=== PATIENT | female | born 1960 | race Caucasian/White ===

== ENCOUNTER → 2023-12-11 | Outpatient (CLI) | payer MEDICARE, SELFPAY ==
--- NOTE | 2023-12-11 13:02 | CT_ITS ---
EXAM: CT CHEST, LUNG CANCER SCREENING WITHOUT INTRAVENOUS CONTRAST CLINICAL INDICATION: Screening TECHNIQUE: Helically acquired images were obtained of the chest without intravenous contrast using low dose (LDCT) lung cancer screening protocol. This CT exam was performed using one or more of the following dose reduction techniques: automated exposure control, adjustment of the mA and/or kV according to patient size, and/or use of iterative reconstruction technique. COMPARISON: No relevant prior studies available. FINDINGS: LUNGS AND PLEURAL SPACES: There are emphysematous changes within both lungs. There is scarring within the right middle lobe. There is minimal atelectasis in the lingula. No mass. No pleural effusion or thickening. No pneumothorax. HEART: Unremarkable. Heart size is normal. No pericardial effusion. No significant coronary artery calcifications. MEDIASTINUM: Unremarkable. No mediastinal or hilar adenopathy. Esophagus is unremarkable. No hiatal hernia. THYROID: Unremarkable. No thyroid lesions. BONES/JOINTS: Unremarkable. No suspicious lytic or blastic abnormality. VASCULATURE: Unremarkable. Thoracic aorta is non-dilated. LYMPH NODES: Unremarkable. No enlarged lymph nodes. CT/Low Dose CT Lung Screening IMPRESSION: Pulmonary hyperinflation with emphysematous change. There is scarring in the right middle lobe. There is no acute pulmonary abnormality. Lung-RADS score: 1S - Additional clinically significant or potentially clinically significant findings are described. Recommend continued annual screening with a low-dose CT (LDCT) in 12 months. Electronically Signed: Samy Vyas MD at 0:00 EDT ,
--- OUTSIDE RECORDS SUMMARY | 2023-12-11 18:19 | XMS RPT_ITS | CCD ---
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 Name Role Phone SANDY CONRAD DO Primary Care Physician ([phone] MAST SERVOMECHANISM DESIGNER-AMUSEMENT EQUIPMENT OPERATOR, WILFRIDO Primary Care Physician ([phone] DR XAVIER TUCKER DO Attending Unavailabl e MAST SERVOMECHANISM DESIGNER-AMUSEMENT EQUIPMENT OPERATOR, WILFRIDO Primary Care Unavailabl e MAST SERVOMECHANISM DESIGNER-AMUSEMENT EQUIPMENT OPERATOR, WILFRIDO Primary Care Unavailabl e MOON SERVOMECHANISM DESIGNER-AMUSEMENT EQUIPMENT OPERATOR, DIANELYS Attending Arelivapapi labbriana MAST SERVOMECHANISM DESIGNER-AMUSEMENT EQUIPMENT OPERATOR, WILFRIDO Primary Care Unavailabl e MAST SERVOMECHANISM DESIGNER-AMUSEMENT EQUIPMENT OPERATOR, WILFRIDO Attending Unavailabl e HOUSTON SORENSON, SANDY Primary Care Unavailable CHARLES SAUNDERS, URI Attending Unavailable Medications Current Medications Medication Drug Class(es) Dates Sig (Normalized) Sig (Original) Albuterol (1 source) beta2-Adrenergic Agonist Start: 11-15-2022 Ventolin HFA MDI (90 mcg/inh) inhalation aerosol 0 Refill(s) Start Date: 11/15/22 Status: Ordered albuterol MDI (90 mcg/inh) CFC free inhalation aerosol (2 sources) Start: 10-28-2022 End: 01-26-2023 take 2 puff(s) by inhalation every six hours as needed for wheezing albuterol MDI (90 mcg/inh) CFC free inhalation aerosol 2 puff(s), Inhalation, q6h, PRN as needed for wheezing, # 18 gram(s), 2 Refill(s), Pharmacy: [facility] #[id number], 160, cm, 10/28/22 14:32:00 EST, Height, kg, 10/28/22 14:32:00 EST, Dosing Weight Start Date: 10/28/22 Stop Date: 01/26/23 Status: Ordered Problems Problem Classification Problem Date Documented Da te Episodic/Chronic Alcohol-related disorders (2 sources) Alcohol abuse 10-07-2022 Chronic Cardiac dysrhythmias (2 sources) Tachycardia 09-12-2020 Episodic Chronic obstructive pulmonary disease and bronchiectasis (4 sources) Pulmonary emphysema; Translations: [Smokers' cough] 10-05-2021 Chronic Essential hypertension (1 source) Hypertensive disorder 10-28-2022 Chronic Heart valve disorders (2 sources) Heart murmur 03-25-2020 Episodic Nutritional deficiencies (1 source) Undernutrition 11-15-2022 Chronic Other eye disorders (1 source) Bilateral arcus senilis 11-15-2022 Episodic Other gastrointestinal disorders (2 sources) Dysphagia 09-12-2020 Episodic Other lower respiratory disease (2 sources) Hypoxia 09-12-2020 Episodic Other lower respiratory disease (2 sources) Wheezing 09-12-2020 Episodic Other nutritional; endocrine; and metabolic disorders (1 source) Body mass index less than 20 11-15-2022 Episodic Residual codes; unclassified (2 sources) Tobacco user 03-25-2020 Episodic Spondylosis; intervertebral disc disorders; other back problems (4 sources) Narrowing of intervertebral disc space; Translations: [Neck pain] 10-06-2020 Episodic Results Test Name Value Interpretation Reference Range Facil ity Vital Signs Date Time Vital Sign Value Performing Clinician Macy noel 10-20-2022 22:38-0500 Diastolic Blood Pressure Non-Invasive 84 1 URI SOTO MD [facility] 10-20-2022 22:38-0500 Heart rate 80 /min URI SOTO MD [facility] 10-20-2022 22:38-0500 Respiratory rate 18 /min URI SOTO MD [facility] 10-20-2022 22:38-0500 Systolic Blood Pressure Non-Invasive 124 1 URI SOTO MD [facility] 10-20-2022 21:45-0500 Diastolic Blood Pressure Non-Invasive 84 1 URI SOTO MD [facility] 10-20-2022 21:45-0500 Heart rate 74 /min URI SOTO MD [facility] 10-20-2022 21:45-0500 Systolic Blood Pressure Non-Invasive 189 1 URI SOTO MD [facility] 10-20-2022 20:28-0500 Blood Pressure Location URI SOTO MD [facility] 10-20-2022 20:28-0500 Body height 162.6 cm URI SOTO MD [facility] 10-20-2022 20:28-0500 Body temperature 97.7 [degF] URI SOTO MD [facility] 10-20-2022 20:28-0500 Body weight 45.1 kg URI SOTO MD [facility] 10-20-2022 20:28-0500 Diastolic Blood Pressure Non-Invasive 90 1 URI SOTO MD [facility] 10-20-2022 20:28-0500 Heart rate 82 /min URI SOTO MD [facility] 10-20-2022 20:28-0500 Systolic Blood Pressure Non-Invasive 192 1 URI SOTO MD [facility] Encounters Encounter Date Encounter Type Care Provider Facility Start: 09-19-2023 End: 09-20-2023 ambulatory WILFRIDO MAST SERVOMECHANISM DESIGNER-AMUSEMENT EQUIPMENT OPERATOR Facility:[facility] Start: 07-27-2023 End: 07-28-[address] XAVIER TUCKER DO Facility:[facility] Start: 12-20-2022 End: 12-21-2022 ambulatory WILFRIDO MAST SERVOMECHANISM DESIGNER-AMUSEMENT EQUIPMENT OPERATOR Facility:[facility] Start: 12-20-2022 End: 12-20-2022 Patient encounter procedure WILFRIDO [facility] Start: 10-20-2022 End: 10-21-2022 Emergency department patient visit SANDY CONRAD Facility:[facility] Start: 10-20-2022 End: 10-20-2022 Emergency department patient visit URI SOTO MD [facility] Procedures Date Procedure Procedure Detail Performing Clinician Acquired trigger finger (disorder) URI SOTO MD Payers Date Payer Category Payer Private Health Insurance [id number] 2022 Unknown [id number] 1960 Unknown [id number] 1960 Unknown [id number] 1960 Unknown [id number] 1960 Unknown [id number] Social History Date Type Detail Facility Start: 01-15-2020 Tobacco smoking status Heavy t obacco smoker (finding) [facility] Sex Assigned At Female [facility] Functional Status Date Assessment Result Facility 10-20-2022 Functional Status Standard Safet y ID band on, Call device within reach, Bed in low position, Wheels locked, Upper/Half-Length side-rails up, Bedside Cart Locked, Safety level maintained [facility] Mental Status Date Assessment Result Facility 10-20-2022 Mental Status Orientation Oriented x 4 [facility] Discharge instructions 10-21-2022 Note Date & Type Note Facility 10-21-2022 Hospital Discharge instructions Patient Education 10/20/2022 22:25:24 Treating Dysphagia Treating Dysphagia Blend foods to make them easier to eat. A medical evaluation helps your healthcare provider find the cause of your trouble swallowing, or dysphagia. Your evaluation may include a medical history and some special tests. Your provider will make a treatment plan based on the results of your evaluation. You may need to take medicines. In some cases, your provider may suggest a procedure to stretch or widen your esophagus (esophageal dilation). Or your provider may suggest surgery. What you can do To help control dysphagia, follow your treatment plan. Take all medicines as directed. You also can help lessen your dysphagia symptoms by being careful about what and how you eat. Medicines You may need medicines, such as those that: Reduce or neutralize stomach acids Control esophagus muscle spasms Treat an allergic disorder of the esophagus that is causing the problem Are injected into the esophagus to help symptoms Esophageal dilation Dilation is a procedure that your provider can use to widen your esophagus. It is most often done when a narrowing (stricture) of the esophagus is causing the problem. There are many ways your provider can widen your esophagus. He or she can discuss them with you. Eating tips Eat slowly in a relaxed setting. Don t talk while you eat. Take small bites and chew slowly and thoroughly Sit in an upright position during and after meals. Ask your provider about any special diets that may help, such as liquid diets. If you have trouble swallowing solid foods, you can use a hand carver to mash or pur e them. Thicken liquids with milk, juice, broth, gravy, or starch to make swallowing easier. Your healthcare provider may recommend that you have an evaluation or sessions with a speech or occupational therapist. These specialists in dysphagia may give you exercises and instructions to help you eat safely. [id number] [employer]. [address] [place] [address]. All rights reserved. This information is not intended as a substitute for professional medical care. Always follow your healthcare professional's instructions. 10/20/2022 22:25:11 Hypertension, New (Begin Treatment) High Blood Pressure, New, Begin Treatment Your blood pressure was high enough today to start treatment with medicines. Often healthcare providers don t know what causes high blood pressure (hypertension). But it can be controlled with lifestyle changes and medicines. High blood pressure usually has no symptoms. But it can sometimes cause headache, dizziness, blurred vision, a rushing sound in your ears, chest pain, or shortness of breath. But even without symptoms, high blood pressure that s not treated raises your risk for heart attack, heart failure, and stroke. High blood pressure is a serious health risk and shouldn t be ignored. Blood pressure measurements are given as 2 numbers. Systolic blood pressure is the upper number. This is the pressure when the heart contracts. Diastolic blood pressure is the lower number. This is the pressure when the heart relaxes between beats. You will see your blood pressure readings written together. For example, a person with a systolic pressure of 118 and a diastolic pressure of 78 will have 118/78 written in the medical record. Blood pressure is categorized as normal, elevated, or stage 1 or stage 2 high blood pressure: Normal blood pressure is systolic of less than 120 and diastolic of less than 80 (120/80) Elevated blood pressure is systolic of 120 to 129 and diastolic less than 80 Stage 1 high blood pressure is systolic is 130 to 139 or diastolic between 80 to 89 Stage 2 high blood pressure is when systolic is 140 or higher or the diastolic is 90 or higher Home care If you have high blood pressure, you should do what is listed below to lower your blood pressure. If you are taking medicines for high blood pressure, these methods may reduce or end your need for medicines in the future. Begin a weight-loss program if you are overweight. Cut back on how much salt you get in your diet. Here s how to do this: oDon t eat foods that have a lot of salt. These include olives, pickles, smoked meats, and salted potato chips. oDon t add salt to your food at the table. oUse only small amounts of salt when cooking. [facility] food labels to track how much salt is in prepared foods. oWhen eating out, ask that no additional salt be added to your food order. Begin an exercise program. Talk with your healthcare provider about the type of exercise program that would be best for you. It doesn't have to be hard. Even brisk walking for 20 minutes 3 times a week is a good form of exercise. Don t take medicines that have heart stimulants. This includes many rato-xex-sybtvsb cold and sinus decongestant pills and sprays, as well as diet pills. Check the warnings about high blood pressure on the label. Before purchasing any bpsu-hxc-hsakgql medicines or supplements, always ask the pharmacist about the product's potential interaction with your high blood pressure and your high blood pressure medicines. Stimulants such as amphetamine or cocaine could be lethal for someone with high blood pressure. Never take these. Limit how much caffeine you get in your diet. Switch to caffeine-free products. Stop smoking. If you are a long-time smoker, this can be hard. Enroll in a stop-smoking program to make it more likely that you will quit for good. Learn how to handle stress. This is an important part of any program to lower blood pressure. Learn about relaxation methods like meditation, yoga, or biofeedback. If your provider prescribed medicines, take them exactly as directed. Missing doses may cause your blood pressure get out of control. If you miss a dose or doses, check with your healthcare provider or pharmacist about what to do. Consider buying an automatic blood pressure machine. Your provider can make a recommendation. You can get one of these at most pharmacies. The [place] [employer] recommends the following guidelines for home blood pressure monitoring: Don't smoke or drink coffee or other caffeinated drinks for 30 minutes before taking your blood pressure. Go to the bathroom before the test. Relax for 5 minutes before taking the measurement. Sit with your back supported (don't sit on a couch or soft chair); keep your feet on the floor uncrossed. Place your arm on a solid flat surface (like a table) with the upper part of the arm at heart level. Place the middle of the cuff directly above the bend of the elbow. Check the monitor's instruction manual for an illustration. Take multiple readings. When you measure, take 2 to 3 readings one minute apart and record all of the results. Take your blood pressure at the same time every day, or as your healthcare provider recommends. Record the date, time, and blood pressure reading. Take the record with you to your next medical appointment. If your blood pressure monitor has a built-in memory, simply take the monitor with you to your next appointment. Call your provider if you have several high readings. Don't be frightened by a single high blood pressure reading, but if you get several high readings, check in with your healthcare provider. Note: When blood pressure reaches a systolic (top number) of 180 or higher OR diastolic (bottom number) of 110 or higher, seek emergency medical treatment. Follow-up care Because a new blood pressure medicine was started today, it s important that you have your blood pressure rechecked. This is to make sure that the medicine is working and that you have no serious side effects. Keep all your follow up appointments. Write down medicine and blood pressure questions and bring them to your next appointment. If you have pressing concerns about your new medicine or your blood pressure, call your provider. Unless told otherwise, follow up with your healthcare provider or this facility within the next 3 days. When to seek medical advice Call your healthcare provider right away if any of these occur: Blood pressure reaches a systolic (top number) of 180 or higher, OR diastolic (bottom number) of 110 or higher, seek emergency medical treatment. Chest pain or shortness of breath Severe headache Throbbing or rushing sound in the ears Nosebleed Sudden severe pain in your belly (abdomen) Extreme drowsiness, confusion, or fainting Dizziness or dizziness with a spinning sensation (vertigo) Weakness of an arm or leg or one side of the face You have problems speaking or seeing [id number] [employer]. [address] [place] [address]. All rights reserved. This information is not intended as a substitute for professional medical care. Always follow your healthcare professional's instructions. 10/20/2022 22:24:58 COPD Flare COPD Flare You have had a flare-up of your COPD. COPD (chronic obstructive pulmonary disease) is a common lung disease. It causes your airways to get irritated and narrower. This makes it harder for you to breathe. Emphysema and chronic bronchitis are both types of COPD. This is a long-term (chronic) condition. This means you always have it. Sometimes it gets worse. When this happens, it is called a flare-up. Symptoms of COPD People with COPD may have symptoms most of the time. In a flare-up, your symptoms get worse. These symptoms may mean you are having a flare-up: Shortness of breath, shallow or rapid breathing, or wheezing that gets worse Lung infection Cough that gets worse More mucus, thicker mucus or mucus of a different color Tiredness, less energy, or trouble doing your normal activities Fever Chest tightness Your symptoms don t get better even when you use your normal medicines, inhalers, and nebulizer Trouble talking You feel confused Causes of flare-ups Unfortunately, a flare-up can happen even if you did everything right. And even if you followed your healthcare provider s instructions. Some causes of flare-ups are: Smoking or secondhand smoke Colds, the flu, or respiratory infections Air pollution Sudden change in the weather Dust, irritating chemicals, or strong fumes Not taking your medicines as prescribed Home care Here are some things you can do at home to treat a flare-up: Try not to panic. This makes it harder to breathe, and keeps you from doing the right things. Don t smoke or be around others who are smoking. Try to drink more fluids than normal during a flare-up, unless your healthcare provider has told you not to because of heart and kidney problems. More fluids can help loosen the mucus. Use your inhalers and nebulizer, if you have one, as you have been told to. If you were given antibiotics, take them until they are used up or your provider tells you to stop. It s important to finish the antibiotics, even though you feel better. This will make sure the infection has cleared. If you were given prednisone or another steroid, finish it even if you feel better. Preventing a flare-up Flare-ups happen. But the best way to treat one is to prevent it before it starts. Here are some pointers: Don t smoke or be around others who are smoking. Take your medicines as discussed with your healthcare provider. Talk with your provider about getting a flu shot every year. Also find out if you need a pneumonia shot. If there is a weather advisory warning to stay indoors, try to stay inside when possible. Try to eat healthy, exercise, and get plenty of sleep. Try to stay away from things that normally set you off. These include dust, chemical fumes, hairsprays, or strong perfumes. Follow-up care Follow up with your healthcare provider, or as advised. If a culture was done, you will be told if your treatment needs to be changed. You can call as directed for the results. If X-rays were done, you will be told of any new findings that may affect your care. Call 911 Call 911 if any of these occur: You have trouble breathing You feel confused or it s hard to wake you up You faint or lose consciousness You have a rapid heart rate You have new pain in your chest, arm, shoulder, neck, or upper back When to seek medical advice Call your healthcare provider right away if any of these occur: Wheezing or shortness of breath gets worse You need to use your inhalers more often than normal without relief Fever of 100.4 F (38 C) or higher, or as directed by your healthcare provider Coughing up lots of dark-colored or bloody mucus (sputum) Chest pain with each breath You don't start to get better within 24 hours Swelling of your ankles gets worse Dizziness or weakness [phone] [employer]. [address] [place] [address], [place] [address]. All rights reserved. This information is not intended as a substitute for professional medical care. Always follow your healthcare professional's instructions. 10/20/2022 22:24:42 Shortness of Breath (Dyspnea) Shortness of Breath (Dyspnea) Shortness of breath is the feeling that you can't catch your breath or get enough air. It is also known as dyspnea. Dyspnea can be caused by many different conditions. They include: Acute asthma attack Worsening of chronic lung diseases such as chronic bronchitis and emphysema Heart failure. This is when weak heart muscle allows extra fluid to collect in the lungs. Panic attacks or anxiety. Fear can cause rapid breathing (hyperventilation). Pneumonia, or an infection in the lung tissue Exposure to toxic substances, fumes, smoke, or certain medicines Blood clot in the lung (pulmonary embolism). This is often from a piece of blood clot in a deep vein of the leg (deep vein thrombosis) that breaks off and travels to the lungs. Heart attack or heart-related chest pain (angina) Anemia Collapsed lung (pneumothorax) Dehydration Based on your visit today, the exact cause of your shortness of breath is not certain. Your tests don t show any of the serious causes of dyspnea. You may need other tests to find out if you have a serious problem. It s important to watch for any new symptoms or symptoms that get worse. Follow up with your healthcare provider as directed. Home care Follow these tips to take care of yourself at home: When your symptoms are better, go back to your usual activities. If you smoke, you should stop. Join a quit-smoking program or ask your healthcare provider for help. Eat a healthy diet and get plenty of sleep. Get regular exercise. Talk with your healthcare provider before starting to exercise, especially if you have other medical problems. Cut down on the amount of caffeine and stimulants you consume. Follow-up care Follow up with your healthcare provider, or as advised. If tests were done, you will be told if your treatment needs to be changed. You can call as directed for the results. If an X-ray was taken, a specialist will review it. You will be notified of any new findings that may affect your care. Call 911 Shortness of breath may be a sign of a serious medical problem. For example, it may be a problem with your heart or lungs. Call 911 if you have worsening shortness of breath or trouble breathing, especially with any of the symptoms below: Confusion or difficulty waking Fainting or loss of consciousness. Fast or irregular heartbeat Coughing up blood Pain in your chest, arm, shoulder, neck, or upper back Sweating When to seek medical advice Call your healthcare provider right away if any of these occur: Slight shortness of breath or wheezing Redness, pain or swelling in your leg, arm, or other body area Swelling in both legs or ankles Fast weight gain Dizziness or weakness Fever of 100.4 F (38 C) or higher, or as directed by your healthcare provider [phone] [employer] [address] [place] [address]. All rights reserved. This information is not intended as a substitute for professional medical care. Always follow your healthcare professional's instructions. Follow Up Care 10/20/2022 20:20:59 With:SANDY CONRAD Address: [address] [place] [address] [place] [address]- [phone] Business (1) When:2-4 days Comments:Schedule appointment for close follow-up.Do not smoke.Use albuterol inhaler as prescribed for shortness of breath/wheezing as needed.Use lisinopril as prescribed for shortness of breath as needed.Monitor your blood pressures closely, keep a log of the readings to show your doctor.Get a referral to a hole puncher strap (GI specialist) from your doctor for further evaluation of difficulty swallowing.Return to the ED if symptoms worsen. [facility] Emergency department Discharge summary 10-20-2022 Note Date & Type Note Facility 10-20-2022 Emergency department Discharge summary Discharge Instructions Thank you for allowing [facility] to assist you with your healthcare needs. The following is important discharge information regarding your hospital visit. Diagnosis from Today's Visit Difficulty swallowing Shortness of breath What to Do Next Instructions from Your Care Team No qualifying data available. Post Acute Orders No qualifying data available. You Need to Schedule the Following Appointments Follow Up with SANDY CONRAD When Within 2-4 days Why: Schedule appointment for close follow-up. Do not smoke. Use albuterol inhaler as prescribed for shortness of breath/wheezing as needed. Use lisinopril as prescribed for shortness of breath as needed. Monitor your blood pressures closely, keep a log of the readings to show your doctor. Get a referral to a hole puncher strap (GI specialist) from your doctor for further evaluation of difficulty swallowing. Return to the ED if symptoms worsen. Where: [address] [place] [phone] Business (1) Allergies NK[facility] Medications Please ask your primary doctor or pharmacist before taking any other medication not listed, including over the counter drugs, herbal medications, vitamins and or supplements as they may interact with your home medications. What How Much When Why Instructions Last Dose New albuterol (albuterol MDI (90 mcg/ inh) CFC free inhalation aerosol) 2 puff(s) by inhalation Every 6 hours Printed Prescription New lisinopril (lisinopril 10 mg oral tablet) 1 tab(s) by mouth Once a day Duration: 14 Days Printed Prescription Unchanged budesonide-formoterol (Symbicort 160 mcg-4.5 mcg/ inh Inhaler) 2 puff(s) by inhalation Two (2) times a day Emphysema/COPD Tobacco use Unchanged omeprazole (omeprazole 2 mg/ mL oral suspension) 20 Milliliter by mouth Once a day Dysphagia Duration: 30 Days Please take this list to your next doctor s visit. Bring all medications you take, including over the counter medications, herbals and other supplements with you to your doctor s visit. Patients and families are reminded to discard old lists and to update any records with all medication providers or retail pharmacies. Education Materials Treating Dysphagia Blend foods to make them easier to eat. A medical evaluation helps your healthcare provider find the cause of your trouble swallowing, or dysphagia. Your evaluation may include a medical history and some special tests. Your provider will make a treatment plan based on the results of your evaluation. You may need to take medicines. In some cases, your provider may suggest a procedure to stretch or widen your esophagus (esophageal dilation). Or your provider may suggest surgery. What you can do To help control dysphagia, follow your treatment plan. Take all medicines as directed. You also can help lessen your dysphagia symptoms by being careful about what and how you eat. Medicines You may need medicines, such as those that: Reduce or neutralize stomach acids Control esophagus muscle spasms Treat an allergic disorder of the esophagus that is causing the problem Are injected into the esophagus to help symptoms Esophageal dilation Dilation is a procedure that your provider can use to widen your esophagus. It is most often done when a narrowing (stricture) of the esophagus is causing the problem. There are many ways your provider can widen your esophagus. He or she can discuss them with you. Eating tips Eat slowly in a relaxed setting. Don t talk while you eat. Take small bites and chew slowly and thoroughly Sit in an upright position during and after meals. Ask your provider about any special diets that may help, such as liquid diets. If you have trouble swallowing solid foods, you can use a hand carver to mash or pur e them. Thicken liquids with milk, juice, broth, gravy, or starch to make swallowing easier. Your healthcare provider may recommend that you have an evaluation or sessions with a speech or occupational therapist. These specialists in dysphagia may give you exercises and instructions to help you eat safely. [id number] [employer]. [address] [place] [id number]. All rights reserved. This information is not intended as a substitute for professional medical care. Always follow your healthcare professional's instructions. High Blood Pressure, New, Begin Treatment Your blood pressure was high enough today to start treatment with medicines. Often healthcare providers don t know what causes high blood pressure (hypertension). But it can be controlled with lifestyle changes and medicines. High blood pressure usually has no symptoms. But it can sometimes cause headache, dizziness, blurred vision, a rushing sound in your ears, chest pain, or shortness of breath. But even without symptoms, high blood pressure that s not treated raises your risk for heart attack, heart failure, and stroke. High blood pressure is a serious health risk and shouldn t be ignored. Blood pressure measurements are given as 2 numbers. Systolic blood pressure is the upper number. This is the pressure when the heart contracts. Diastolic blood pressure is the lower number. This is the pressure when the heart relaxes between beats. You will see your blood pressure readings written together. For example, a person with a systolic pressure of 118 and a diastolic pressure of 78 will have 118/78 written in the medical record. Blood pressure is categorized as normal, elevated, or stage 1 or stage 2 high blood pressure: Normal blood pressure is systolic of less than 120 and diastolic of less than 80 (120/80) Elevated blood pressure is systolic of 120 to 129 and diastolic less than 80 Stage 1 high blood pressure is systolic is 130 to 139 or diastolic between 80 to 89 Stage 2 high blood pressure is when systolic is 140 or higher or the diastolic is 90 or higher Home care If you have high blood pressure, you should do what is listed below to lower your blood pressure. If you are taking medicines for high blood pressure, these methods may reduce or end your need for medicines in the future. Begin a weight-loss program if you are overweight. Cut back on how much salt you get in your diet. Here s how to do this: oDon t eat foods that have a lot of salt. These include olives, pickles, smoked meats, and salted potato chips. oDon t add salt to your food at the table. oUse only small amounts of salt when cooking. everyArtview food labels to track how much salt is in prepared foods. oWhen eating out, ask that no additional salt be added to your food order. Begin an exercise program. Talk with your healthcare provider about the type of exercise program that would be best for you. It doesn't have to be hard. Even brisk walking for 20 minutes 3 times a week is a good form of exercise. Don t take medicines that have heart stimulants. This includes many vlep-fhs-plfzazo cold and sinus decongestant pills and sprays, as well as diet pills. Check the warnings about high blood pressure on the label. Before purchasing any flvd-vha-exeqhcn medicines or supplements, always ask the pharmacist about the product's potential interaction with your high blood pressure and your high blood pressure medicines. Stimulants such as amphetamine or cocaine could be lethal for someone with high blood pressure. Never take these. Limit how much caffeine you get in your diet. Switch to caffeine-free products. Stop smoking. If you are a long-time smoker, this can be hard. Enroll in a stop-smoking program to make it more likely that you will quit for good. Learn how to handle stress. This is an important part of any program to lower blood pressure. Learn about relaxation methods like meditation, yoga, or biofeedback. If your provider prescribed medicines, take them exactly as directed. Missing doses may cause your blood pressure get out of control. If you miss a dose or doses, check with your healthcare provider or pharmacist about what to do. Consider buying an automatic blood pressure machine. Your provider can make a recommendation. You can get one of these at most pharmacies. The [place] [employer] recommends the following guidelines for home blood pressure monitoring: Don't smoke or drink coffee or other caffeinated drinks for 30 minutes before taking your blood pressure. Go to the bathroom before the test. Relax for 5 minutes before taking the measurement. Sit with your back supported (don't sit on a couch or soft chair); keep your feet on the floor uncrossed. Place your arm on a solid flat surface (like a table) with the upper part of the arm at heart level. Place the middle of the cuff directly above the bend of the elbow. Check the monitor's instruction manual for an illustration. Take multiple readings. When you measure, take 2 to 3 readings one minute apart and record all of the results. Take your blood pressure at the same time every day, or as your healthcare provider recommends. Record the date, time, and blood pressure reading. Take the record with you to your next medical appointment. If your blood pressure monitor has a built-in memory, simply take the monitor with you to your next appointment. Call your provider if you have several high readings. Don't be frightened by a single high blood pressure reading, but if you get several high readings, check in with your healthcare provider. Note: When blood pressure reaches a systolic (top number) of 180 or higher OR diastolic (bottom number) of 110 or higher, seek emergency medical treatment. Follow-up care Because a new blood pressure medicine was started today, it s important that you have your blood pressure rechecked. This is to make sure that the medicine is working and that you have no serious side effects. Keep all your follow up appointments. Write down medicine and blood pressure questions and bring them to your next appointment. If you have pressing concerns about your new medicine or your blood pressure, call your provider. Unless told otherwise, follow up with your healthcare provider or this facility within the next 3 days. When to seek medical advice Call your healthcare provider right away if any of these occur: Blood pressure reaches a systolic (top number) of 180 or higher, OR diastolic (bottom number) of 110 or higher, seek emergency medical treatment. Chest pain or shortness of breath Severe headache Throbbing or rushing sound in the ears Nosebleed Sudden severe pain in your belly (abdomen) Extreme drowsiness, confusion, or fainting Dizziness or dizziness with a spinning sensation (vertigo) Weakness of an arm or leg or one side of the face You have problems speaking or seeing [id number] [employer]. [address] [place] [id number]. All rights reserved. This information is not intended as a substitute for professional medical care. Always follow your healthcare professional's instructions. COPD Flare You have had a flare-up of your COPD. COPD (chronic obstructive pulmonary disease) is a common lung disease. It causes your airways to get irritated and narrower. This makes it harder for you to breathe. Emphysema and chronic bronchitis are both types of COPD. This is a long-term (chronic) condition. This means you always have it. Sometimes it gets worse. When this happens, it is called a flare-up. Symptoms of COPD People with COPD may have symptoms most of the time. In a flare-up, your symptoms get worse. These symptoms may mean you are having a flare-up: Shortness of breath, shallow or rapid breathing, or wheezing that gets worse Lung infection Cough that gets worse More mucus, thicker mucus or mucus of a different color Tiredness, less energy, or trouble doing your normal activities Fever Chest tightness Your symptoms don t get better even when you use your normal medicines, inhalers, and nebulizer Trouble talking You feel confused Causes of flare-ups Unfortunately, a flare-up can happen even if you did everything right. And even if you followed your healthcare provider s instructions. Some causes of flare-ups are: Smoking or secondhand smoke Colds, the flu, or respiratory infections Air pollution Sudden change in the weather Dust, irritating chemicals, or strong fumes Not taking your medicines as prescribed Home care Here are some things you can do at home to treat a flare-up: Try not to panic. This makes it harder to breathe, and keeps you from doing the right things. Don t smoke or be around others who are smoking. Try to drink more fluids than normal during a flare-up, unless your healthcare provider has told you not to because of heart and kidney problems. More fluids can help loosen the mucus. Use your inhalers and nebulizer, if you have one, as you have been told to. If you were given antibiotics, take them until they are used up or your provider tells you to stop. It s important to finish the antibiotics, even though you feel better. This will make sure the infection has cleared. If you were given prednisone or another steroid, finish it even if you feel better. Preventing a flare-up Flare-ups happen. But the best way to treat one is to prevent it before it starts. Here are some pointers: Don t smoke or be around others who are smoking. Take your medicines as discussed with your healthcare provider. Talk with your provider about getting a flu shot every year. Also find out if you need a pneumonia shot. If there is a weather advisory warning to stay indoors, try to stay inside when possible. Try to eat healthy, exercise, and get plenty of sleep. Try to stay away from things that normally set you off. These include dust, chemical fumes, hairsprays, or strong perfumes. Follow-up care Follow up with your healthcare provider, or as advised. If a culture was done, you will be told if your treatment needs to be changed. You can call as directed for the results. If X-rays were done, you will be told of any new findings that may affect your care. Call 911 Call 911 if any of these occur: You have trouble breathing You feel confused or it s hard to wake you up You faint or lose consciousness You have a rapid heart rate You have new pain in your chest, arm, shoulder, neck, or upper back When to seek medical advice Call your healthcare provider right away if any of these occur: Wheezing or shortness of breath gets worse You need to use your inhalers more often than normal without relief Fever of 100.4 F (38 C) or higher, or as directed by your healthcare provider Coughing up lots of dark-colored or bloody mucus (sputum) Chest pain with each breath You don't start to get better within 24 hours Swelling of your ankles gets worse Dizziness or weakness [phone] [employer]. [address] [place] [address]. All rights reserved. This information is not intended as a substitute for professional medical care. Always follow your healthcare professional's instructions. Shortness of Breath (Dyspnea) Shortness of breath is the feeling that you can't catch your breath or get enough air. It is also known as dyspnea. Dyspnea can be caused by many different conditions. They include: Acute asthma attack Worsening of chronic lung diseases such as chronic bronchitis and emphysema Heart failure. This is when weak heart muscle allows extra fluid to collect in the lungs. Panic attacks or anxiety. Fear can cause rapid breathing (hyperventilation). Pneumonia, or an infection in the lung tissue Exposure to toxic substances, fumes, smoke, or certain medicines Blood clot in the lung (pulmonary embolism). This is often from a piece of blood clot in a deep vein of the leg (deep vein thrombosis) that breaks off and travels to the lungs. Heart attack or heart-related chest pain (angina) Anemia Collapsed lung (pneumothorax) Dehydration Based on your visit today, the exact cause of your shortness of breath is not certain. Your tests don t show any of the serious causes of dyspnea. You may need other tests to find out if you have a serious problem. It s important to watch for any new symptoms or symptoms that get worse. Follow up with your healthcare provider as directed. Home care Follow these tips to take care of yourself at home: When your symptoms are better, go back to your usual activities. If you smoke, you should stop. Join a quit-smoking program or ask your healthcare provider for help. Eat a healthy diet and get plenty of sleep. Get regular exercise. Talk with your healthcare provider before starting to exercise, especially if you have other medical problems. Cut down on the amount of caffeine and stimulants you consume. Follow-up care Follow up with your healthcare provider, or as advised. If tests were done, you will be told if your treatment needs to be changed. You can call as directed for the results. If an X-ray was taken, a specialist will review it. You will be notified of any new findings that may affect your care. Call 911 Shortness of breath may be a sign of a serious medical problem. For example, it may be a problem with your heart or lungs. Call 911 if you have worsening shortness of breath or trouble breathing, especially with any of the symptoms below: Confusion or difficulty waking Fainting or loss of consciousness. Fast or irregular heartbeat Coughing up blood Pain in your chest, arm, shoulder, neck, or upper back Sweating When to seek medical advice Call your healthcare provider right away if any of these occur: Slight shortness of breath or wheezing Redness, pain or swelling in your leg, arm, or other body area Swelling in both legs or ankles Fast weight gain Dizziness or weakness Fever of 100.4 F (38 C) or higher, or as directed by your healthcare provider [id number] [employer]. [address] [place] [address]. All rights reserved. This information is not intended as a substitute for professional medical care. Always follow your healthcare professional's instructions. Additional Information VACCINATE! IT SAVES LIVES! Members of the community who have not yet received the COVID-19 vaccine and would like to receive it can visit one of [facility] vaccine clinics. There are many vaccine clinic locations within the [facility]. For locations and available times, please visit [email or web address]. It is important to note that some COVID mobile vaccine clinics are held outdoors and may be canceled in rainy or stormy conditions. To learn more about pediatric vaccinations (ages 5-11), we invite you to visit the [facility] webpage. [email or web address] [email or web address] [email or web address]-[email or web address].html To learn more about the COVID-19 vaccine, we invite you to visit the [facility] website for a list of frequently asked questions. [email or web address] ently_[email or web address]-Questions.pdf [facility] Patient Portal Access Instructions: Stay connected with your healthcare team and access your personal medical information anytime with the [facility] Patient Portal. If you would like a full copy of your medical records please contact the [facility] Medical Records Department Monday through Monday between 8a.m. and 4:30p.m. Please follow the directions below to access the portal: 1.Access the email account you provided upon registration to the [facility].2.Look for an invitation email from [facility].3.Open the email and access the invitation link: Accept Invitation to [facility]4.Fill in the required downs to create your account. Sign into www.[facility] with your username and password that you created in the above steps to stay up to date. You can then view a summary of results, a summary of your visits, and the ability to download your summaries to your computer or send the information securely to a physician. Remember that your healthcare information is confidential, so carefully consider who you will allow to register on the [facility] Patient Portal for access to your information. You can also access the [facility] Patient Portal on the [employer] jessi. Simply click on Health Records under Health Data and then click on the [employer] logo. HOW TO SAFELY DISPOSE OF PRESCRIPTION MEDICATIONS Please use one of the following methods to safely dispose of your unused medications. 1.Use a drug disposal kit: the drug disposal pouch allows you to safely discard your old and unused drugs. Ask your nurse to give you one when you are discharged.2.Visit a local take-back location: Many local pharmacies and police departments have programs that collect old and unwanted prescription drugs. Call your local pharmacy or go to http://[employer] A/S/7Z2Dl7k to find one close to you.3.Make use of household items: Use cat litter or old coffee grounds to dispose medications if other options are not available. Mix your drugs with these household products, seal them in an airtight container and throw it into the garbage. Call [facility]: [phone] to be sure your drugs can be disposed of in this way. Some medicines may require a different approach.4.Never flush your medications down the toilet. IF YOU HAVE BEEN PRESCRIBED AN OPIOIDS FOR PAIN If you have been prescribed an opioid (such as hydrocodone, oxycodone or morphine), it is critical to understand the possible side effects and risks of opioid pain medications. Even when taken as directed, opioids can have several side effects including: Tolerance, meaning you might need to take more of a medication for the same pain relief. Nausea, vomiting and/or constipation. Sleepiness, dizziness, dry mouth, confusion, depression or itching. Physical dependence, meaning you have withdrawal symptoms when a medication is stopped ? this can develop within a few days. KNOW YOUR RESPONSIBILITIES It is important to know exactly how much and how often to take the opioid pain medications you are prescribed. Never take opioids in higher amounts or more often than prescribed. Do not combine opioids with alcohol or other drugs that cause drowsiness, such as benzodiazepines, also known as benzos, including diazepam and alprazolam, muscle relaxants or sleep aids. Never sell or share prescription opioids. This is illegal. Store opioids in a secure place and out of reach of others (including children, family, friends and visitors). The last page(s) of this document has been signed and retained as a CHART COPY Signatures Patient Education Materials Treating Dysphagia Hypertension, New (Begin Treatment) COPD Flare Shortness of Breath (Dyspnea) Medication Leaflets My discharge plan and instructions have been reviewed and explained to me and I,VITA ÁLVAREZ understand my current condition and have read and understand these discharge instructions. I have received a written copy of the plan/instructions. If I have questions, I am aware that I should contact my doctor. 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 Hyperinflated lungs. No focal consolidation, vascular congestion, pleural effusion, or pneumothorax. Right lower lung calcified granuloma. Scarring at the right lung apex. Hardware within the cervical spine. No acute osseous abnormality. IMPRESSION: No acute radiographic findings. I have personally reviewed the images of this examination and agree with the resident's findings and interpretation. Interpreted by: Andreas Levine Preliminary Report By: Miriam Bonilla Electronically signed By Andreas Levine Dictated Date: 10/20/2022 9:46:26 PM Prelim Date: 10/20/2022 9:48:01 PM Sign Date: 10/20/2022 9:55:29 PM Ordering Provider: [facility] Clinical Note 10-20-2022 Note Date & Type Note Facility 10-20-2022 Note ORIGINAL EXAMINATION: ONE XRAY VIEW OF THE CHEST 10/20/2022 9:44 pm COMPARISON: Chest x-ray 09/12/2020 HISTORY: ORDERING SYSTEM PROVIDED HISTORY: Reason for Exam: SOB, history of COPD FINDINGS: Stable cardiomediastinal contours. Hyperinflated lungs. No focal consolidation, vascular congestion, pleural effusion, or pneumothorax. Right lower lung calcified granuloma. Scarring at the right lung apex. Hardware within the cervical spine. No acute osseous abnormality. IMPRESSION: No acute radiographic findings. I have personally reviewed the images of this examination and agree with the resident's findings and interpretation. Interpreted by: Andreas Levine Preliminary Report By: Miriam Bonilla Electronically signed By Andreas Levine Dictated Date: 10/20/2022 9:46:26 PM Prelim Date: 10/20/2022 9:48:01 PM Sign Date: 10/20/2022 9:55:29 PM Ordering Provider: [facility] Progress note 05-04-2021 Note Date & Type Note Facility 05-04-2021 Note HNO ID: [id number] Author: Fortino Stacy APRN.AMUSEMENT EQUIPMENT OPERATOR Service: ? Author Type: Nurse Practitioner Type: Progress Notes Filed: 05/04/2021 1:55 PM Note Text: This note was created using NoteWriter. Subjective Vita Álvarez is a 61 year old female. HPI Patient is a healthy nontoxic-appearing 61-year-old female with past medical history of intervertebral cervical disc disorder with myelopathy, presents the office today complaining of dog bite. Patient states 3 days ago she was attempting to adopt a Chihuahua. Patient states she has a pitbull at home and states the 2 dogs began to fight. Patient states she tried to break up the fight with a tree while a bit her in the left thumb. Patient states dog is up-to-date and all vaccinations. Patient states she has had increased redness, swelling and pain to the left thumb since then. Patient denies any drainage or bleeding from the bite site. Patient states she is not sure when her last tetanus immunization was. Patient denies any chest pain, shortness of breath difficulty breathing, fever, shaking, chills, redness or streaking up the hand. Patient denies any abdominal pain. Patient denies any nausea or vomiting. Review of Systems Constitutional: Negative. HENT: Negative. Respiratory: Negative. Cardiovascular: Negative. Gastrointestinal: Negative. Musculoskeletal: Negative. Skin: Positive for color change and rash. Neurological: Negative. Objective BP 122/72 Pulse 92 Temp 37 ?C (98.6 ?F) Resp 18 Wt 51.7 kg (114 lb) SpO2 96% Physical Exam Vitals and nursing note reviewed. Constitutional: General: She is not in acute distress. Appearance: Normal appearance. She is not ill-appearing, toxic-appearing or diaphoretic. HENT: Head: Normocephalic. Eyes: Pupils: Pupils are equal, round, and reactive to light. Cardiovascular: Rate and Rhythm: Normal rate and regular rhythm. Pulses: Normal pulses. Heart sounds: Normal heart sounds. No murmur heard. No friction rub. No gallop. Pulmonary: Effort: Pulmonary effort is normal. No respiratory distress. Breath sounds: Normal breath sounds. No stridor. No wheezing, rhonchi or rales. Chest: Chest wall: No tenderness. Musculoskeletal: General: Normal range of motion. Cervical back: Normal range of motion and neck supple. Skin: General: Skin is warm and dry. Capillary Refill: Capillary refill takes less than 2 seconds. Coloration: Skin is not jaundiced or pale. Findings: Bruising, erythema and lesion present. No rash. Neurological: General: No focal deficit present. Mental Status: She is alert and oriented to person, place, and time. Assessment and Plan Given patient's complaint presentation x-ray was ordered of the left hand, patient's tetanus immunization was updated today as well. Patient does have moderate amount of erythema to the left dorsal thumb dog bite is. Patient is able to flex and extend thumb with minimal difficulty, cap refill is less than 3 seconds, I have low suspicion for acute osseous abnormality, osteomyelitis, vascular compromise, flexor or extensor tendon injury. X-ray reveals degenerative changes without any acute osseous abnormality, fracture or dislocation. Given findings and duration no laceration repair was performed however encourage patient continue using soap and water to keep the area clean. Patient received prescription for Augmentin and strongly encouraged to follow-up with primary care provider as needed. Patient educated symptoms become worse go to emergency room for further evaluation. Patient was agreeable with this plan and discharged home in stable condition. Fortino Stacy APRN.VERA [facility] Progress note 05-04-2021 Note Date & Type Note Facility 05-04-2021 Note HNO ID: [id number] Author: RT Aaron(R) Service: ? Author Type: Digital Sales Planner Type: Progress Notes Filed: 05/04/2021 12:09 PM Note Text: Radiology Service Progress Note PATIENT NAME: Vita Álvarez DATE OF SERVICE: May 04, 2021 TIME: 12:08 PM PATIENT IDENTITY VERIFICATION COMPLETED USING TWO (2) IDENTIFIERS: Name and Date of confirmed by patient verbally. FALL SCREENING: Has the patient had 2 falls in the last year or 1 fall with injury or currently using an Ambulatory Assistive Device (Walker, Cane, Wheelchair, Crutches, etc.)? No PATIENT GENDER DATA: Female. status: : No status: NO. PATIENT RELEVANT IMPLANT DATA REVIEWED: Yes RADIOLOGY DEPARTMENT: General X-ray: Exam(s) Completed: Upper Extremity X-Ray(s): Hand, left PERIPHERAL IV DATA: Not applicable SIGNED BY: RT Aaron(R) May 04, 2021 12:08 PM [facility] Evaluation + Plan note Note Date & Type Note Facility Evaluation + Plan note No data available for this section [facility] Evaluation + Plan note Note Date & Type Note Facility Evaluation + Plan note Future Appointments Appointment Date:06/13/2023 10:00:00 AM Scheduled Provider:WILFRIDO DICKINSON Location:[facility] Appointment Type: Wellness Annual [facility] Hospital Discharge instructions Note Date & Type Note Facility Hospital Discharge instructions No data available for this section [facility] Progress note Note Date & Type Note Facility Progress note No data available for this section [facility] Summary Purpose Family History No Family History Records FoundNo Family History Records Found Advance Directives No Advanced Directives Records FoundNo Advanced Directives Records Found Additional Source Comments INFORMATION SOURCE (unrecogn ized section and content) DATE CREATED AUTHOR AUTHOR'S ORGANIZ ATION 10/05/2023 [facility] ([place]) Care Team (unrecognized sect ion and content) Care Team Personnel Name: SANDY CONRAD DO Position: P4 Physician - Primary Care Member Role: Primary Care Physician Address: Address: [address] [place] [address] Name: URI SOTO MD Position: ED Physician Member Role: ED Physician Address: Address: [address] [address] Name: CATARINO Diaz Position: ED RN Member Role: ED RN Care Team Related Persons Name: VIVIEN LOGAN Patient Care team informatio n (unrecognized section and content) Care Team Personnel Name: WILFRIDO DICKINSON Position: P4 Advanced Cooperative Extension Agent Member Role: Primary Care Physician Address: Address: [address] [place] [address] Care Team Related Persons Name: VIVIEN LOGAN FOR RECORDS PERTAINING TO PATIENTS WHO ARE OR HAVE BEEN ENROLLED IN A CHEMICAL DEPENDENCY/SUBSTANCEABUSE PROGRAM, SOME INFORMATION MAY BE OMITTED. This clinical summary was aggregated from multiple sources. Caution should be exercised in using it in the provision of clinical care. This summary normalizes information from multiple sources, and as a consequence, information in this document may materially change the coding, format and clinical context of patient data. In addition, data may be omitted in some cases. CLINICAL DECISIONS SHOULD BE BASED ON THE PRIMARY CLINICAL RECORDS. [facility] [employer] [facility]. provides no warranty or guarantee of the accuracy or completeness of information in this document.
== END | disposition home or self-care (01) ==
LOC: CT 13:01
PROVIDERS: PCP Nurse Practitioner Adult Health; Referring Provider Internal Medicine Critical Care Medicine; Visit Provider Internal Medicine Critical Care Medicine
DX: Z12.2 Encounter for screening for malignant neoplasm of respiratory organs (principal); F17.210 Nicotine dependence, cigarettes, uncomplicated
CPT/HCPCS: 71271

== ENCOUNTER → 2023-12-15 | Outpatient (CLI) | payer MEDICARE, SELFPAY ==
[2023-12-15 12:55] VITALS: PULSE 100; PULSE 110; PULSE 111; PULSE 112; PULSE 116; PULSE 97; O2SAT 86; O2SAT 87; O2SAT 90; O2SAT 91; O2SAT 96
--- NOTE | 2023-12-15 12:59 | CPS ---
Patient does not have oxygen at home. Starting SpO2 at rest 90%. After 1 minute of walking SpO2 86%. Placed patient on 2 lpm O2, recovered for a little over 2 minutes to 94%. Patient did not feel very short of breath. She described it as doesn't feel great, but it's how I normally feel . Patient continued to walk until the 3rd minute, SpO2 87%. Turned oxygen up to 3 lpm and let patient recover for another couple minutes to an SpO2 of 97%. Patient finished walk on 3 lpm.
--- NOTE | 2023-12-15 15:41 | PCM.PSN.6M ---
PSN 6 Minute Walk Test 6 Minute Walk Test 6 Minute Walk Test: 6 Minute Walk Test PSN:6-Minute Walk Test Start: 12/15/23 12:55 Freq: Status: Active Protocol: RESP.6MINW Document 12/15/23 12:55 STEFFENANY (Rec: 12/15/23 13:02 STEFFENDAYNAMARTINE [id number]) 6 Minute Walk Test Date Performed 12/15/23 Time Performed 12:30 Height 5 ft 4 in Weight: 45.359 kg Weight in Pounds 100.[address]: Alvarez Adler Assistive device used: None Pre-test Oxygen Delivery Method Room Air Pulse Ox 90 Pulse Rate (60-100) 97 Dyspnea Kevin Scale (0-10) 0 Exertion Kevin Scale (6-20) 6 1st minute Oxygen Delivery Method Room Air Pulse Ox 86 Pulse Rate (60-100) 111 H 2nd minute Oxygen Flow Rate (L/min) 2 Oxygen Delivery Method Nasal Cannula Pulse Ox 91 Pulse Rate (60-100) 100 3rd minute Oxygen Flow Rate (L/min) 2 Oxygen Delivery Method Nasal Cannula Pulse Ox 87 Pulse Rate (60-100) 112 H 4th minute Oxygen Flow Rate (L/min) 3 Oxygen Delivery Method Nasal Cannula Pulse Ox 96 Pulse Rate (60-100) 110 H 5th minute Oxygen Flow Rate (L/min) 3 Oxygen Delivery Method Nasal Cannula Pulse Ox 96 Pulse Rate (60-100) 116 H 6th minute Oxygen Flow Rate (L/min) 3 Oxygen Delivery Method Nasal Cannula Pulse Ox 96 Pulse Rate (60-100) 116 H Dyspnea Kevin Scale (0-10) 3 Exertion Kevin Scale (6-20) 13 Post-test Oxygen Flow Rate (L/min) 3 Oxygen Delivery Method Nasal Cannula Pulse Ox 96 Pulse Rate (60-100) 100 Full Laps Walked 16 Partial Lap, Number of Tiles Walked 14 Total Distance Walked (ft) 958 12/15/23 12:59 Cardiopulmonary Services by Yanira Reis Patient does not have oxygen at home. Starting SpO2 at rest 90%. After 1 minute of walking SpO2 86%. Placed patient on 2 lpm O2, recovered for a little over 2 minutes to 94%. Patient did not feel very short of breath. She described it as doesn't feel great, but it's how I normally feel . Patient continued to walk until the 3rd minute, SpO2 87%. Turned oxygen up to 3 lpm and let patient recover for another couple minutes to an SpO2 of 97%. Patient finished walk on 3 lpm. Initialized on 12/15/23 12:59 - END OF NOTE Interpretation Interpretation: The patient was noted to be 90% on room air at rest, but desaturated to 86% within 1 minute of ambulation. Patient was placed on 2 L/min and saturations improved to 94%. The patient was able to then complete a 6-minute walk requiring up to 3 L/min. Patient did have an element of reflexive tachycardia. In total, the patient traveled 958 feet over the course of 6 minutes with no assistive devices and 2 breaks. These findings are consistent with a respiratory limitation exercise tolerance. Recommendations Recommendations: The patient requires no supplemental oxygen at rest, but should be using 3 L/min with any exertion.
--- OUTSIDE RECORDS SUMMARY | 2023-12-15 17:04 | XMS RPT_ITS | CCD ---
Author Name Unknown Address [id number] [place] [address] Organization [facility] Care Team Providers Care Proj Engineer Name Role Phone SANDY CONRAD DO Primary Care Physician [phone] MAST OIL SPRAYER-JUNIOR ACCOUNTANT, WILFRIDO Primary Care Physician [phone] DR XAVIER TUCKER DO Attending Unavailabl e MAST OIL SPRAYER-JUNIOR ACCOUNTANT, WILFRIDO Primary Care Unavailabl e MAST OIL SPRAYER-JUNIOR ACCOUNTANT, WILFRIDO Primary Care Unavailabl e MOON OIL SPRAYER-JUNIOR ACCOUNTANT, DIANELYS Attending Arelivapapi labbriana MAST OIL SPRAYER-JUNIOR ACCOUNTANT, WILFRIDO Primary Care Unavailabl e MAST OIL SPRAYER-JUNIOR ACCOUNTANT, WILFRIDO Attending Unavailabl e [place] SORENSON, SANDY [...] wheezing, # 18 gram(s), 2 Refill(s), Pharmacy: [facility] #[id number], 160, cm, 10/28/22 14:32:00 EST, Height, kg, [...] Pressure Non-Invasive 84 1 URI SOTO MD [facility] 10-20-2022 22:38-0500 Heart rate 80 /min URI SOTO MD [facility] 10-20-2022 22:38-0500 Respiratory rate 18 /min URI SOTO MD [facility] 10-20-2022 22:38-0500 Systolic Blood Pressure Non-Invasive 124 1 URI SOTO MD [facility] 10-20-2022 21:45-0500 Diastolic Blood Pressure Non-Invasive 84 1 URI SOTO MD [facility] 10-20-2022 21:45-0500 Heart rate 74 /min URI SOTO MD [facility] 10-20-2022 21:45-0500 Systolic Blood Pressure Non-Invasive 189 1 URI SOTO MD [facility] 10-20-2022 20:28-0500 Blood Pressure Location URI SOTO MD [facility] 10-20-2022 20:28-0500 Body height 162.6 cm URI SOTO MD [facility] 10-20-2022 20:28-0500 Body temperature 97.7 [degF] URI SOTO MD [facility] 10-20-2022 20:28-0500 Body weight 45.1 kg URI SOTO MD [facility] 10-20-2022 20:28-0500 Diastolic Blood Pressure Non-Invasive 90 1 URI SOTO MD [facility] 10-20-2022 20:28-0500 Heart rate 82 /min URI SOTO MD [facility] 10-20-2022 20:28-0500 Systolic Blood Pressure Non-Invasive 192 1 URI SOTO MD [facility] Encounters Encounter Date Encounter Type Care Provider Facility Start: 09-19-2023 End: 09-20-2023 ambulatory WILFRIDO MAST OIL SPRAYER-JUNIOR ACCOUNTANT Facility:B Start: 07-27-2023 End: 07-28-[address] XAVIER TUCKER DO Facility:B Start: 12-20-2022 End: 12-21-2022 ambulatory WILFRIDO MAST OIL SPRAYER-JUNIOR ACCOUNTANT Facility:[facility] Start: 12-20-2022 End: 12-20-2022 Patient encounter procedure WILFRIDO DICKINSON [facility] Start: 10-20-2022 End: 10-21-2022 Emergency department patient visit SANDY CONRAD Facility:[facility] Start: 10-20-2022 End: 10-20-2022 Emergency department patient visit URI SOTO MD [facility] Procedures Date Procedure Procedure Detail Performing Clinician Acquired trigger finger (disorder) URI SOTO MD Payers Date Payer Category Payer Private Health Insurance [id number] 2022 Unknown [id number] 1960 Unknown [id number] 1960 Unknown [id number] 1960 Unknown [id number] 1960 Unknown [id number] [id number] Social History Date Type Detail Facility Start: 01-15-2020 Tobacco smoking status Heavy t obacco smoker (finding) [facility] Sex Assigned At Female [facility] Functional Status Date Assessment Result Facility 10-20-2022 Functional Status Standard Safet y ID band on, Call device within reach, Bed in low position, Wheels locked, Upper/Half-Length side-rails up, Bedside Cart Locked, Safety level maintained [facility] Mental Status Date Assessment Result Facility 10-20-2022 Mental Status Orientation Oriented x 4 [facility] Discharge instructions 10-21-2022 Note Date & [...] swallowing solid foods, you can use a grain blender to mash or pur e them. Thicken liquids with milk, juice, broth, gravy, or starch to make swallowing easier. Your healthcare provider may recommend that you have an evaluation or sessions with a speech or occupational therapist. These specialists in dysphagia may give you exercises and instructions to help you eat safely. [phone] [employer]. [address] [place] [address]. All rights reserved. This information is not [...] only small amounts of salt when cooking. [facility] food labels to track how much salt [...] that have heart stimulants. This includes many jvnp-ddh-bzluvyn cold and sinus decongestant pills and sprays, as well as diet pills. Check the warnings about high blood pressure on the label. Before purchasing any wixb-xad-pidruba medicines or supplements, always ask the pharmacist [...] one of these at most pharmacies. The [employer] recommends the following guidelines for [...] face You have problems speaking or seeing 5648-3769 [employer]. [address] [place] [address]. All rights reserved. This information is not [...] your ankles gets worse Dizziness or weakness 3352-9275 [employer]. [address] [place] [address], [place] [address]. All rights reserved. This information is not [...] or as directed by your healthcare provider 7501-3385 [employer]. [address] [place] [address]. All rights reserved. This information is not intended as a substitute for professional medical care. Always follow your healthcare professional's instructions. Follow Up Care 10/20/2022 20:20:59 With:SANDY CONRAD Address: [address] [place] [address] [place] [address]- [phone] Business (1) When:2-4 days Comments:Schedule appointment for close follow-up.Do not smoke.Use albuterol inhaler as prescribed for shortness of breath/wheezing as needed.Use lisinopril as prescribed for shortness of breath as needed.Monitor your blood pressures closely, keep a log of the readings to show your doctor.Get a referral to a vaccine specialist (GI specialist) from your doctor for further evaluation of difficulty swallowing.Return to the ED if symptoms worsen. [facility] Emergency department Discharge summary 10-20-2022 Note Date & Type Note Facility 10-20-2022 Emergency department Discharge summary Discharge Instructions Thank you for allowing [facility] to assist you with your healthcare needs. [...] your doctor. Get a referral to a vaccine specialist (GI specialist) from your doctor for further evaluation of difficulty swallowing. Return to the ED if symptoms worsen. Where: [address] [place] [phone] Business (1) Allergies NKA Medications Please ask [...] swallowing solid foods, you can use a grain blender to mash or pur e them. Thicken liquids with milk, juice, broth, gravy, or starch to make swallowing easier. Your healthcare provider may recommend that you have an evaluation or sessions with a speech or occupational therapist. These specialists in dysphagia may give you exercises and instructions to help you eat safely. [phone] [employer]. [address] [place] [address]. All rights reserved. This information is not [...] only small amounts of salt when cooking. [facility] food labels to track how much salt [...] that have heart stimulants. This includes many scps-ejf-lrlzeqt cold and sinus decongestant pills and sprays, as well as diet pills. Check the warnings about high blood pressure on the label. Before purchasing any jajm-tyo-wxibfeu medicines or supplements, always ask the pharmacist [...] one of these at most pharmacies. The [employer] recommends the following guidelines for [...] face You have problems speaking or seeing 9146-82[address] [employer]. [address] [place] [address]. All rights reserved. This information is not [...] your ankles gets worse Dizziness or weakness 7203-5846 [employer]. [address] [place] [address]. All rights reserved. This information is not [...] or as directed by your healthcare provider [phone] [employer]. [address] [place] [address]. All rights reserved. This information is not intended as a substitute for professional medical care. Always follow your healthcare professional's instructions. Additional Information VACCINATE! IT SAVES LIVES! Members of the community who have not yet received the COVID-19 vaccine and would like to receive it can visit one of [facility] vaccine clinics. There are many vaccine clinic locations within the [facility]. For locations and available times, please visit [email or web address] g. It is important to note that some COVID mobile vaccine clinics are held outdoors and may be canceled in rainy or stormy conditions. To learn more about pediatric vaccinations (ages 5-11), we invite you to visit the [facility] webpage. https://www.[facility].org/pag es/0847-Mpatj-Hgyvciclguo-Frequent wq-Gezgo-Elmbkzqdz.html To learn more about the COVID-19 vaccine, we invite you to visit the [facility] website for a list of frequently asked questions. [email or web address] ([employer]le[employer])/assets/Patient b-wbk-Cpysvily/qfxkv-Rqolupi-Vwmus ently_Asked-Questions.pdf [facility] Patient Portal Access Instructions: Stay connected with your healthcare team and access your personal medical information anytime with the [employer] Patient Portal. If you would like a full copy of your medical records please contact the [facility] Medical Records Department Monday through Monday between 8a.m. and 4:30p.m. Please follow the directions below to access the portal: 1.Access the email account you provided upon registration to the [facility].2.Look for an invitation email from [facility].3.Open the email and access the invitation link: Accept Invitation to [employer]4.Fill in the required downs to create your account. Sign into www.[employer] with your username and password that you [...] you will allow to register on the [employer] Patient Portal for access to your information. You can also access the [employer] Patient Portal on the [employer] jessi. Simply click on Health Records under Health Data and then click on the [employer] logo. HOW TO SAFELY DISPOSE OF PRESCRIPTION [...] Call your local pharmacy or go to [email or web address]/[email or web address] to find one close to you.3.Make use of household items: Use cat litter or old coffee grounds to dispose medications if other options are not available. Mix your drugs with these household products, seal them in an airtight container and throw it into the garbage. Call [facility]: [phone] to be sure your drugs can be [...] aware that I should contact my doctor. Patient/Underwriting Director Signature: Date/Time: Relationship to Patient: ___ Witness Name/Signature: Date/Time: [facility] Clinical Note 10-20-2022 Note Date & [...] Sign Date: 10/20/2022 9:55:29 PM Ordering Provider: [facility] Clinical Note 10-20-2022 Note Date & [...] Sign Date: 10/20/2022 9:55:29 PM Ordering Provider: [facility] Progress note 05-04-2021 Note Date & Type Note Facility 05-04-2021 Note HNO ID: [id number] Author: Fortino Stacy APRN.JUNIOR ACCOUNTANT Service: ? Author Type: Nurse Practitioner Type: [...] home in stable condition. Fortino Stacy APRN.VERA [facility] Progress note 05-04-2021 Note Date & Type Note Facility 05-04-2021 Note HNO ID: [id number] Author: RT Aaron(R) Service: ? Author Type: Hvac Manager Type: Progress Notes Filed: 05/04/2021 12:09 PM [...] RT Aaron(R) May 04, 2021 12:08 PM [facility] Evaluation + Plan note Note Date & Type Note Facility Evaluation + Plan note No data available for this section [facility] Evaluation + Plan note Note Date & Type Note Facility Evaluation + Plan note Future Appointments Appointment Date:06/13/2023 10:00:00 AM Scheduled Provider:WILFRIDO DICKINSON Location[facility] Appointment Type: Wellness Annual [facility] Hospital Discharge instructions Note Date & Type Note Facility Hospital Discharge instructions No data available for this section [facility] Progress note Note Date & Type Note Facility Progress note No data available for this section [facility] Summary Purpose Family History No Family History Records FoundNo Family History Records Found Advance Directives No Advanced Directives Records FoundNo Advanced Directives Records Found Additional Source Comments INFORMATION SOURCE (unrecogn ized section and content) DATE CREATED AUTHOR AUTHOR'S ORGANIZ ATION 10/05/2023 [facility] ([place]) Care Team (unrecognized sect ion and content) Care Team Personnel Name: SANDY CONRAD DO Position: P4 Physician - Primary Care Member Role: Primary Care Physician Address: Address: [address] [place] [address] Name: URI SOTO MD Position: ED Physician Member Role: ED Physician Address: Address: [address] [address] Name: CATARINO Diaz Position: ED RN Member Role: ED RN Care Team Related Persons Name: VIVIEN LOGAN Patient Care team informatio n (unrecognized section and content) Care Team Personnel Name: WILFRIDO DICKINSON Position: P4 Advanced Senior Software Engineer Member Role: Primary Care Physician Address: Address: [address] [place] [address] Care Team Related Persons Name: VIVIEN LOGAN [...] BE BASED ON THE PRIMARY CLINICAL RECORDS. [facility] [employer] [facility]. provides no warranty or guarantee of the accuracy or completeness of information in this document.
== END | disposition home or self-care (01) ==
LOC: PSN 12:22
PROVIDERS: PCP Nurse Practitioner Adult Health; Referring Provider Internal Medicine Critical Care Medicine; Visit Provider Internal Medicine Critical Care Medicine
DX: J43.9 Emphysema, unspecified (principal)
CPT/HCPCS: 94618

== ENCOUNTER → 2024-12-11 | Outpatient (CLI) | payer MEDICARE, SELFPAY ==
--- NOTE | 2024-12-11 13:18 | CT_ITS ---
PROCEDURE: LOW DOSE CT LUNG SCREENING REASON FOR EXAM: SMOKING Patient has smoked 1 pack per day for 50 years. TECHNIQUE: Low Dose CT Lung Screening without contrast COMPARISON: Comparison is made with prior study dated December 11, 2023. FINDINGS: PULMONARY NODULES: (Only nodules >6mm are reported) Nodules described below are on series 1 unless otherwise specified. Pulmonary Nodules: No concerning pulmonary nodules. Hardware:None Lymph Nodes:No mediastinal hilar or axillary lymphadenopathy. Heart and Vasculature:Normal heart size. No pericardial effusion.Atherosclerotic calcifications of the thoracic aorta. Thoracic aorta and pulmonary arteries have normal contours; noncontrast technique limits evaluation. Coronary Artery Calcifications: Present Lungs and Airways: There is evidence of volume loss with scarring and bronchiectasis in the right middle lobe. Stable scarring in the lingular segment of the left upper lobe. Pleura:No pleural effusion. No pneumothorax. Upper Abdomen:Visualized portions of the upper abdominal viscera are unremarkable. Bones:Degenerative changes of the thoracic spine. CT/Low Dose CT Lung Screening IMPRESSION: 1. BASED ON THE ACR LUNG RADS FOR THE MOST SUSPICIOUS NODULE (IF ANY) DESCRIBE D IN THIS REPORT, THE OVERALL LUNG RADS SCORE IS 2.2 - BENIGN (BASED ON IMAGING FEATURES OR INDOLENT BEHAVIOR). RECOMMEND 12-MON TH SCREENING LDCT.. 2. SMOKING CESSATION COUNSELING IS RECOMMENDED IF THE PATIENT IS STILL SMOKING . 3. OTHER SIGNIFICANT FINDINGSNone. One or more dose reduction techniques were used (e.g., Automated exposure contr ol, adjustment of the mA and/or kV according to patient size, use of iterative reconstruction technique). The following information is provided for reference:Lung-RADS 2021 Assessment C ategories. Additional information involving Lung-RADS is available at [email or web address].org. 0-INCOMPLETE 1-NEGATIVE:No nodules or definitely benign nodules. Complete, central, popcorn , or centric ring calcifications OR fat containing 2-BENIGN APPEARANCE (based on imaging features or indolent behavior). Juxtaple ural nodule: < 10mm AND solid; smooth margins; oval, entiform, or triangular shape Solid nodule: <6mm at baseline or new< 4mm Part solid Nodule: < 6mm total mean diameter at baseline Nonsolid nodule:(GGN) < 30mm OR >=30mm stable or slowly growing Airway nodule, subsegmental at baseline, new, or stable Category 3 nodule stabl e or decreased in size at 6-month follow-up CT or Category 3 or 4A nodules that resolve on follow-up OR category 4B findings prov en to be benign following diagnotic work up. 3 - Probably Benign (Based on imaging features or behavior) Solid Nodule: >= 6 to <8mm at baseline OR new 4 to <6mm Part-solid nodule: >= 6mm toal mean diam. with solid component <6mm at baseline OR new < 6mm total mean diam. Non-solid nodule: GGN >= 30mm at baseline or new Atypical pulmonary cyst: Growing cystic component (mean diam.) of thick-walled cyst Category 4A nodule stable or decreased in size at 3-month follow-up CT (excl.ai rway). 4A - Suspicious Solid nodule: >=8 to < 15mm at baseline OR growing < 8mm OR new 6 to < 8mm Part solid nodule: >= 6mm total mean diam. w/ solid component >=6mm to < 8mm at baseline OR new or growing < 4mm solid component Airway nodule, segmental or more proximal at baseline or new Atypical pulmonary cyst: Thick-walled OR multilocular at baseline OR becomes mu ltilocular 4B - Very Suspicious Airway nodule, segmental or more proximal, and stable or growing Solid nodule: >= 15mm at baseline OR new or growing >= 8mm Part solid nodule: Solid component >= 8mm OR new or growing >= 4mm solid compon ent Atypical pulmonary cyst: Thick-walled with growing wall thickness/nodularity OR Growing multilocular (mean diam.) OR Multilocular with increased loculation or new/increased opacity Slow-growing solid or part solid nodule w/ growth over multiple screening exams 4X - Very Suspicious Category 3 or 4 nodules with additional features that increase the suspicion fo r lung cancer. S - Clinically Significant or potentially significant findings (non-lung cancer ) Reading Location: [place] [id number]
== END | disposition home or self-care (01) ==
PROVIDERS: PCP Nurse Practitioner Adult Health; Referring Provider Nurse Practitioner Acute Care; Visit Provider Nurse Practitioner Acute Care
DX: Z12.2 Encounter for screening for malignant neoplasm of respiratory organs (principal); F17.210 Nicotine dependence, cigarettes, uncomplicated
CPT/HCPCS: 71271